=== PATIENT | female | born 1980 | race Caucasian/White ===

== ENCOUNTER 2016-04-16 10:53 | Emergency (ER) | payer OTHER ==
[2016-04-16 10:58] VITALS: PULSE 80; TEMP 98.8; BMI 24.7
--- NOTE | 2016-04-16 11:11 | PDOC ---
History of Present Illness <Radames Patino - Last Filed: 04/16/16 12:48> - General History Source: Patient, Old Records Exam Limitations: No Limitations - History of Present Illness Initial Comments: 04/16/16 11:22 The patient is a 36-year-old woman with a significant past medical history of anemia, ventricular ectopy, symptomatic palpitations, thyroid disease and anxiety who presents to the emergency department via walk-in for further evaluation of a headache since yesterday. No fall/recent head injury. As per patient, she was in her usual state of health when her symptoms started. No strenuous activity. Initially, she experienced a head pressure sensation, frontal, non-radiating and mild, but it has now progressively worsened into a headache with associated photophobia and palpitations. She denies history of migraines. She denies ever experiencing similar symptoms in the past. She states that her palpitations sensations that she experiences with her headache are not different from her typical palpitations. No fever, chills, weakness, chest pain, nausea, vomiting, lightheadedness. Patient was recently in this ED for evaluation of an upper respiratory infection and vertigo for which she was started on Prednisone/Meclizine respectively and admitted. During admission she underwent an echocardiogram that was normal and showed moderate TR. She was ultimately discharged and plan was for repeat outpatient echocardiogram and possible holter monitoring which is scheduled for tomorrow (04/17/2016). Allergies: Fenugreek. Sulfamethoxazole. Trimethoprim Past Surgical History: None reported. Social History: Former smoker. Social ETOH use. No recreational drug use. Primary Care Physician: Dr. Mallory Kennedy / [phone] Eyelet Machine Operator: Dr. Jackie Lagos [phone]/ <Franca Ca - Last Filed: 04/18/16 11:05> - General Chief Complaint: Palpitations Stated Complaint: HEART PALPITATIONS, HEAD PRESSURE Time Seen by Provider: 04/16/16 11:11 Past History - Past Medical History Anemia: Yes Cardiac Disorders: Yes (H/O PALPITATIONS) Psychiatric Problems: Yes (ANXIETY) Suicide Attempt (Hx): No Thyroid Disease: Yes (OVERACTIVE) - Psycho/Social/Smoking Cessation Hx Anxiety: Yes Suicidal Ideation: No Smoking Status: Yes Smoking History: Never smoked Have you smoked in the past 12 months: No Number of Cigarettes Smoked Daily: 0 If you are a former smoker, when did you quit?: 2008 'Breaking Loose' booklet given: 07/09/12 Hx Alcohol Use: Yes (SOCIAL) Drug/Substance Use Hx: No Substance Use Type: None Hx Substance Use Treatment: No <Radames Patino - Last Filed: 04/16/16 12:48> <Franca Ca - Last Filed: 04/18/16 11:05> - Past Medical History Allergies/Adverse Reactions: Allergies Allergy/AdvReac Type Severity Reaction Status Date / Time fenugreek Allergy Verified 03/13/16 10:31 sulfamethoxazole Allergy Verified 03/13/16 10:31 [From Bactrim] trimethoprim [From Bactrim] Allergy Verified 03/13/16 10:31 Home Medications: Ambulatory Orders Diphenhydramine HCl [Benadryl Capsule -] 25 mg PO ASDIR 11/16/15 Review of Systems - Review of Systems Constitutional: No: Chills, Fever HEENTM: No: Recent change in vision, Double Vision Respiratory: No: Cough, Shortness of Breath Cardiac (ROS): Yes: Palpitations. No: Chest Pain ABD/GI: Yes: Nausea. No: Diarrhea, Vomiting Neurological: Yes: Headache. No: Weakness, Ataxia All Other Systems: Reviewed and Negative <Radames Patino - Last Filed: 04/16/16 12:48> *Physical Exam - Vital Signs Last Vital Signs Temp Pulse Resp BP Pulse Ox 98.8 F 80 20 107/74 99 04/16/16 10:55 04/16/16 10:55 04/16/16 10:55 04/16/16 10:55 04/16/16 10:55 <Radames Patino - Last Filed: 04/16/16 12:48> - Vital Signs Last Vital Signs Temp Pulse Resp BP Pulse Ox 98.8 F 80 20 107/74 99 04/16/16 10:55 04/16/16 10:55 04/16/16 10:55 04/16/16 10:55 04/16/16 10:55 - Physical Exam Comments: 04/16/16 11:22 GENERAL: The patient is awake, alert, and fully oriented, in no acute distress. HEAD: Normal with no signs of trauma. EYES: Pupils equal, round and reactive to light, extraocular movements intact, sclera anicteric, conjunctiva clear with no pallor. ENT: Ears normal, nares patent, oropharynx clear without exudates. Moist mucous Membranes. No sinus tenderness or inflammation. NECK: Normal range of motion, supple without lymphadenopathy, JVD, or masses. LUNGS: Breath sounds equal, clear to auscultation bilaterally. No wheeze/ crackles. HEART: Overall regular but with occasional premature beats ABDOMEN: Soft/nontender/nondistended. BS wnl. No guarding or rebound. No palpable masses. No hepatosplenomegaly. EXTREMITIES: Normal range of motion, no edema. No clubbing or cyanosis. No cords, erythema, or tenderness. NEUROLOGICAL: Cranial nerves II through XII grossly intact. Mental status: The patient is alert and oriented x3. Cranial nerves: Cranial nerves II through XII are intact Motor: The upper extremities are 5 over 5 in all muscle groups. The lower extremities are 5 over 5 in all muscle groups. No pronator drift. Sensation: Sensation is intact to light touch throughout. Cerebellar: Dkxfkz-esmzdm-shos is normal in both upper extremities. Heel-knee- colón is normal in both lower extremities. Reflexes: 2+ and symmetric in the upper and lower extremities. Gait: Normal. Heel and toe walking are normal. Tandem gait is normal. PSYCH: Normal mood, normal affect. SKIN: Warm, Dry, normal turgor, no rashes or lesions noted. <Franca Ca - Last Filed: 04/18/16 11:05> Heart Score/ECG Review #1 ECG reviewed & interpreted by me at: 11:01 General ECG Interpretation: Sinus Rhythm (with occasional PVC noted), Normal Rate (74), Normal Intervals (QTC 419), No acute ischemic changes Compared to previous ECG there are: No significant change (03/13/16 (fewer PVCs today)) <Radames Patino - Last Filed: 04/16/16 12:48> ED Treatment Course - LABORATORY CBC & Chemistry Diagram: 04/16/16 11:23 04/16/16 11:23 <Radames Patino Last Filed: 04/16/16 12:48> - LABORATORY CBC & Chemistry Diagram: 04/16/16 11:23 04/16/16 11:23 <Franca Ca - Last Filed: 04/18/16 11:05> Medical Decision Making - Medical Decision Making 04/16/16 11:28 A portion of this note was documented by scribe services under my direction. I have reviewed the details of the note, within reason, and agree with the documentation with the following case summary and management plan written by me. 36-year-old female with known history of ventricular ectopy and symptomatic palpitations, thyroid disease presents with her usual palpitations but more importantly a frontal headache that has been progressive since yesterday. Atraumatic, gradual and mild at onset persistent and progressive in severity, frontal with some photophobia, no vision changes or nausea or vomiting or focal deficit. No fevers or chills, no meningismus. Afebrile. Well-appearing No sinus tenderness Neurologically intact 36-year-old female with gradual onset mild frontal headache, presents for evaluation. Her palpitations are chronic and are not source of her ED complaints. No recent travel, no recent trauma, no evidence of infectious complaints. She did recently start Accutane on Thursday, which has headache in its side effect spectrum. check electrolytes, EKG trial of reglan, IVF check , trial of toradol if negative no indication for emergent imaging at this time, will reassess 04/16/16 12:48 Feels great, headache resolved, ambulating comfortably in the ED. Labs are completely normal, remains neurologically intact, wants to be discharged. Understands return criteria, has appointment with Dr. Trujillo of cardiology tomorrow. <Radames Patino - Last Filed: 04/16/16 12:48> *DC/Admit/Observation/Transfer <Radames Patino - Last Filed: 04/16/16 12:48> - Attestations Scribe Attestion: 04/16/16 11:23 Documentation prepared by Franca Ca, acting as medical collections representative for Radames Patino MD. <Franca Ca - Last Filed: 04/18/16 11:05> Diagnosis at time of Disposition: PVC (premature ventricular contraction) Headache Qualifiers: Headache type: unspecified Headache chronicity pattern: unspecified pattern Intractability: not intractable Qualified Code(s): R51 - Headache - Discharge Dispostion Disposition: HOME Condition at time of disposition: Improved - Referrals Referrals: Mallory Coe MD [Primary Care Provider] - Jackie Lagos MD [Staff Physician] - - Patient Instructions Printed Discharge Instructions: DI for Headache Additional Instructions: Activity as tolerated. Stay hydrated. Tylenol 1000 mg every 8 hours and/or ibuprofen 600 mg every 8 hours as needed for pain. Blood tests today showed no abnormalities. Your headache could be a side effect of Accutane. If it persists, try stopping the Accutane or change in the medication. If it still persists, consider speaking to your primary physician about getting an outpatient MRI. Continue your medications as previously prescribed by your physician. You should follow up with your primary doctor as soon as possible regarding today's emergency department visit. Return to the emergency department for any new or concerning symptoms, particularly persistent or worsening headaches, vision changes or focal weakness , vomiting or fevers, persistent palpitations or chest pain.
[2016-04-16] MEDS ORDERED: SODIUM CHLORIDE 1,000 ML IV ONE (11:24)
[2016-04-16] MEDS ORDERED: METOCLOPRAMIDE HCL INJECTION 10 MG/2 ML VIAL IVPB ONE (11:24)
[2016-04-16 11:45] LABS: EOSINOPHIL 0.4 % (0-4.5); MCH 27.9 pg (25.7-33.7); MCHC 33.5 g/dl (32.0-36.0); MEAN CELL VOLUME 83.3 fl (80-96); MEAN PLT VOLUME 8.8 fl (7.5-11.1); NEUTROPHILS 66.7 % (42.8-82.8); PLATELET COUNT 204 K/MM3 (134-434); WHITE BLOOD COUNT 8.9 K/mm3 (4.0-10.0)
[2016-04-16] MEDS ORDERED: METOCLOPRAMIDE HCL INJECTION 10 MG/2 ML VIAL ONE (11:54)
[2016-04-16 12:10] LABS: ALBUMIN 3.4 g/dl (3.4-5.0); ANION GAP 6 (8-16); BILIRUBIN,TOTAL 0.4 mg/dL (0.2-1.0); CO2 27 mmol/L (21-32); CREATININE 0.8 mg/dL (0.55-1.02); GLUCOSE,RANDOM 72 mg/dL (74-106); MAGNESIUM 2.1 mg/dL (1.8-2.4); SGOT/AST 16 U/L (15-37); SGPT/ALT 14 U/L (12-78); TOT PROT 6.7 g/dl (6.4-8.2)
[2016-04-16 12:13] LABS: ALK PHOS 41 U/L (45-117); TROPONIN I < 0.02 ng/ml (0.00-0.05)
[2016-04-16 13:11] VITALS: BP 120/74
--- NOTE | 2016-04-16 23:48 | EKG ---
Test Reason : Blood Pressure : / mmHG Vent. Rate : 074 BPM Atrial Rate : 074 BPM P-R Int : 146 ms QRS Dur : 092 ms QT Int : 378 ms P-R-T Axes : 081 -02 050 degrees QTc Int : 419 ms SINUS RHYTHM WITH SINUS ARRHYTHMIA WITH OCCASIONAL PREMATURE VENTRICULAR COMPLEXES INCOMPLETE RIGHT BUNDLE BRANCH BLOCK BORDERLINE ECG WHEN COMPARED WITH ECG OF 13-MAR-2016 12:34, NO SIGNIFICANT CHANGE WAS FOUND Confirmed by YONNY JUAREZ, [place] ([id number]) on 04/16/2016 11:47:48 PM Referred By: Confirmed By:WASHINGTON BLANCAS MD
== END 2016-04-16 13:08 | disposition home or self-care (01) ==
LOC: JER 10:53
PROC: 3E033GC Introduction of Other Therapeutic Substance into Peripheral Vein, Percutaneous Approach (ICD-10-PCS; principal; 2016-04-16)
PROC: 3E0337Z Introduction of Electrolytic and Water Balance Substance into Peripheral Vein, Percutaneous Approach (ICD-10-PCS; 2016-04-16)
DX: I49.3 Ventricular premature depolarization (principal); R51 Headache; F41.9 Anxiety disorder, unspecified
CPT/HCPCS: 36415; 80053; 82550; 83735; 84443; 84484; 84703; 85025; 93005; 93010; 96361; 96374; 99284-25

== ENCOUNTER 2018-07-20 10:21 | Emergency (ER) | payer OTHER ==
[2018-07-20 10:28] VITALS: BP 99/71; PULSE 91; TEMP 98.2; BMI 25.4
--- NOTE | 2018-07-20 12:50 | PDOC ---
History of Present Illness - General Chief Complaint: Pain, Acute Stated Complaint: FOOD POISONING Time Seen by Provider: 07/20/18 12:14 History Source: Patient Exam Limitations: No Limitations Past History - Travel Traveled outside of the country in the last 30 days: No Close contact w/someone who was outside of country & ill: No - Past Medical History Allergies/Adverse Reactions: Allergies Allergy/AdvReac Type Severity Reaction Status Date / Time fenugreek Allergy Verified 07/20/18 10:24 sulfamethoxazole Allergy Verified 07/20/18 10:24 [From Bactrim] trimethoprim [From Bactrim] Allergy Verified 07/20/18 10:24 Home Medications: Ambulatory Orders Diphenhydramine HCl [Benadryl Capsule -] 25 mg PO ASDIR 11/16/15 Ondansetron [Zofran Odt -] 4 mg SL TID #10 od.tablet 07/20/18 Anemia: Yes Cardiac Disorders: Yes (H/O PALPITATIONS) COPD: Yes CHF: No Psychiatric Problems: Yes (ANXIETY) Thyroid Disease: Yes (OVERACTIVE) - Immunization History Immunization Up to Date: Yes - Suicide/Smoking/Psychosocial Hx Smoking Status: Yes Smoking History: Never smoked Have you smoked in the past 12 months: No Number of Cigarettes Smoked Daily: 0 If you are a former smoker, when did you quit?: 2008 'Breaking Loose' booklet given: 07/09/12 Hx Alcohol Use: No Drug/Substance Use Hx: No Substance Use Type: None Hx Substance Use Treatment: No Review of Systems - Review of Systems Able to Perform ROS?: Yes Comments:: 07/20/18 14:58 CONSTITUTIONAL: Absent: fever, chills, diaphoresis, generalized weakness, malaise, loss of appetite HEENT: Absent: rhinorrhea, nasal congestion, throat pain, throat swelling, difficulty swallowing, mouth swelling, ear pain, eye pain, visual Changes CARDIOVASCULAR: Absent: chest pain, loss of consciousness, palpitations, irregular heart rate, peripheral edema RESPIRATORY: Absent: cough, shortness of breath, dyspnea with exertion, orthopnea, wheezing, stridor, hemoptysis GASTROINTESTINAL: Present: abdominal pain, nausea, vomiting, diarrhea Absent: abdominal distension constipation, melena, hematochezia GENITOURINARY: Absent: dysuria, frequency, urgency, hesitancy, hematuria, flank pain, genital pain MUSCULOSKELETAL: Absent: myalgia, arthralgia, joint swelling SKIN: Absent: rash, itching, pallor HEMATOLOGIC/IMMUNOLOGIC: Absent: easy bleeding, easy bruising, lymphadenopathy, frequent infections ENDOCRINE: Absent: unexplained weight gain, unexplained weight loss, heat intolerance, cold intolerance NEUROLOGIC: Absent: headache, focal weakness or paresthesias, dizziness, unsteady gait, seizure, mental status changes, bladder or bowel incontinence PSYCHIATRIC: Absent: anxiety, depression, suicidal or homicidal ideation, hallucinations. Is the patient limited Setswana proficient: No *Physical Exam - Vital Signs Last Vital Signs Temp Pulse Resp BP Pulse Ox 98.2 F 91 H 18 99/71 97 07/20/18 10:25 07/20/18 10:25 07/20/18 10:25 07/20/18 10:25 07/20/18 10:25 - Physical Exam Comments: 07/20/18 15:00 GENERAL: Well developed, well nourished. Awake and alert. No acute distress. HEENT: Normocephalic, atraumatic. PERRLA, EOMI. No conjunctival pallor. Sclera are non- icteric. Moist mucous membranes. Oropharynx is clear. NECK: Supple. Full ROM. No JVD. Carotid pulses 2+ and symmetric, without bruits. No thyromegaly. No lymphadenopathy. CARDIOVASCULAR: Regular rate and rhythm. No murmurs, rubs, or gallops. Distal pulses are 2+ and symmetric. PULMONARY: No evidence of respiratory distress. Lungs clear to auscultation bilaterally. No wheezing, rales or rhonchi. ABDOMINAL: Diffuse TTP of the abdomen without focal findings. Soft. Non-distended. No rebound or guarding. No organomegaly. Normoactive bowel sounds. MUSCULOSKELETAL Normal range of motion at all joints. No bony deformities or tenderness. No CVA tenderness. EXTREMITIES: No cyanosis. No clubbing. No edema. No calf tenderness. SKIN: Warm and dry. Normal capillary refill. No rashes. No jaundice. NEUROLOGICAL: Alert, awake, appropriate. Cranial nerves 2-12 intact. No deficits to light touch and temperature in face, upper extremities and lower extremities. No motor deficits in the in face, upper extremities and lower extremities. Normoreflexic in the upper and lower extremities. Normal speech. Toes are down- going bilaterally. Gait is normal without ataxia. PSYCHIATRIC: Cooperative. Good eye contact. Appropriate mood and affect. ED Treatment Course - LABORATORY CBC & Chemistry Diagram: 07/20/18 13:29 07/20/18 13:29 Medical Decision Making - Medical Decision Making 07/20/18 15:01 The patient is a 38-year-old female with no past medical history who presents to the ER today for 1 day of nausea, vomiting, diarrhea and abdominal cramping. Patient states her symptoms started after eating a chicken salad last night. She states that the abdominal pain is crampy in nature and that the pain is relieved after vomiting or having a bowel movement. Denies fevers, chills, earache, sore throat, chest pain, shortness of breath, frequency, urgency and hematuria. A/P: Abdominal pain Patient with diffuse tenderness of the abdomen with no focal findings. Given setting of nausea vomiting and diarrhea for one day after eating out suspected gastroenteritis Basic labs, urine obtained Patient given IV fluids, Zofran and Pepcid with Mylanta for her symptoms. Reevaluate 07/20/18 16:28 On repeat exam, cramping has improved Lab work is grossly normal. No leukocytosis, electrolytes grossly normal urine is negative Most likely viral syndrome Strict return precautions to return should pain localize Pt to f/u with her PCP I discussed the physical exam findings, ancillary test results and final diagnoses with the patient. I answered all of the patient's questions. The patient was satisfied with the care received and felt comfortable with the discharge plan and treatment plan. The Patient agrees to follow up with the primary care physician/specialist within 24-72 hours. Return precautions were given. *DC/Admit/Observation/Transfer Diagnosis at time of Disposition: Abdominal pain Qualifiers: Abdominal location: generalized Qualified Code(s): R10.84 - Generalized abdominal pain - Discharge Dispostion Disposition: HOME Condition at time of disposition: Stable Decision to Admit order: No - Prescriptions Prescriptions: Ondansetron [Zofran Odt -] 4 mg SL TID #10 od.tablet - Referrals Referrals: Mallory Coe MD [Primary Care Provider] - - Patient Instructions Printed Discharge Instructions: DI for Viral Gastroenteritis -- Adult Additional Instructions: You have nausea, vomiting and diarrhea. Avoid all dairy products until 48 hours after the vomiting/diarrhea has resolved. Eat a bland diet including apple sauce, toast, bananas, and plain rice Drink plenty of fluids including pedialyte, watered down juices and water Follow up with your primary care doctor this week Return to the ED if you develop fevers, localized abdominal pain, worsening vomiting, or if you have any changes in your symptoms. - Post Discharge Activity Forms/Work/School Notes: Back to Work
[2018-07-20] MEDS ORDERED: SODIUM CHLORIDE 1,000 ML IV STA (13:08)
[2018-07-20] MEDS ORDERED: ACETAMINOPHEN 1000 MG/100 ML VIAL (NON FORMULARY) IVPB ONE (13:08)
[2018-07-20] MEDS ORDERED: ONDANSETRON 4 MG/2 ML VIAL IVPUSH ONE (13:08)
[2018-07-20] MEDS ORDERED: FAMOTIDINE 20 MG/50 ML IVPB 20 MG/50 ML MG IVPB ONE ×2 (13:08→13:17)
[2018-07-20] MEDS ORDERED: ONDANSETRON 4 MG/2 ML VIAL ONE (13:17)
[2018-07-20] MEDS ORDERED: ACETAMINOPHEN INJECTION 100 ML IVPB ONE (13:17)
[2018-07-20 13:43] LABS: BASO % 0.4 % (0-2.0); EOS % 0.6 % (0-4.5); HEMATOCRIT 40.6 % (32.4-45.2); HEMOGLOBIN 13.7 GM/dL (10.7-15.3); LYMPH % 10.2 % (8-40); MCH 28.6 pg (25.7-33.7); MCHC 33.8 g/dl (32.0-36.0); MEAN CELL VOLUME 84.7 fl (80-96); MEAN PLT VOLUME 9.2 fl (7.5-11.1); MONO % 8.2 % (3.8-10.2); NEUT % 80.6 % (42.8-82.8); PLATELET COUNT 229 K/MM3 (134-434); RBC 4.79 M/mm3 (3.60-5.2); RDW 14.1 % (11.6-15.6); WHITE BLOOD COUNT 9.7 K/mm3 (4.0-10.0)
[2018-07-20 14:17] LABS: ALBUMIN 3.6 g/dl (3.4-5.0); ALK PHOS 45 U/L (45-117); ANION GAP 4 MMOL/L (8-16); BILIRUBIN,TOTAL 1.2 mg/dL (0.2-1); BLOOD UREA NITROGEN 14 mg/dL (7-18); CALCIUM 9.1 mg/dL (8.5-10.1); CHLORIDE 104 mmol/L (98-107); CO2 26 mmol/L (21-32); CREATININE 0.8 mg/dL (0.55-1.3); GLUCOSE,RANDOM 82 mg/dL (74-106); POTASSIUM 4.6 mmol/L (3.5-5.1); SGOT/AST 19 U/L (15-37); SGPT/ALT 17 U/L (13-61); SODIUM 135 mmol/L (136-145); TOT PROT 7.6 g/dl (6.4-8.2)
[2018-07-20] MEDS ORDERED: IBUPROFEN 400 MG TABLET (FP) PO ONE ×2 (14:51→15:03)
[2018-07-20] MEDS ORDERED: MAG HYDROX/AL HYDROX/SIMETH 30 ML UNIT-DOSE CUP PO ONE (14:51)
[2018-07-20 14:53] LABS: HCG,QUALITATIVE URINE Negative
[2018-07-20 14:54] LABS: EPI CELLS 1.3 /HPF (0-5/HPF); PH,URINE 5.5 (5.0-8.0); URINE APPEARANCE CLEAR; URINE BACTERIA 39.5 /hpf (NEGATIVE); URINE BILIRUBIN NEGATIVE (NEGATIVE); URINE CASTS 2 /lpf (0-8); URINE COLOR DK YELLOW; URINE GLUCOSE (UA) NEGATIVE (NEGATIVE); URINE KETONE 2+ (NEGATIVE); URINE LEUK ESTERASE NEGATIVE (NEGATIVE); URINE NITRITE NEGATIVE (NEGATIVE); URINE PROTEIN NEGATIVE (NEGATIVE); URINE RBC 8 /hpf (0-4); URINE UROBILINOGEN 0.2 mg/dL (0.2-1.0); URINE WBC 1 /hpf (0-5)
[2018-07-20] MEDS ORDERED: MAG HYDROX/AL HYDROX/SIMETH 30 ML UNIT-DOSE CUP ONE (15:04)
== END 2018-07-20 17:00 | disposition home or self-care (01) ==
LOC: JER 10:21
PROC: 3E033GC Introduction of Other Therapeutic Substance into Peripheral Vein, Percutaneous Approach (ICD-10-PCS; principal; 2018-07-20)
PROC: 3E033GC Introduction of Other Therapeutic Substance into Peripheral Vein, Percutaneous Approach (ICD-10-PCS; 2018-07-20)
PROC: 3E033NZ Introduction of Analgesics, Hypnotics, Sedatives into Peripheral Vein, Percutaneous Approach (ICD-10-PCS; 2018-07-20)
DX: A08.4 Viral intestinal infection, unspecified (principal); B97.89 Other viral agents as the cause of diseases classified elsewhere; J44.9 Chronic obstructive pulmonary disease, unspecified; E05.90 Thyrotoxicosis, unspecified without thyrotoxic crisis or storm; Z86.2 Personal history of diseases of the blood and blood-forming organs and certain disorders involving the immune mechanism
CPT/HCPCS: 36415; 80053; 81003; 82550; 84484; 84703; 85025; 87086; 96365; 96375; 99282-25; J0131; J7030

== ENCOUNTER 2018-10-21 13:31 | Emergency (ER) | payer OTHER ==
[2018-10-21 13:45] VITALS: BMI 29.1
--- NOTE | 2018-10-21 13:47 | PDOC ---
Rapid Medical Evaluation Chief Complaint: Chest Pain Time Seen by Provider: 10/21/18 13:41 Medical Evaluation: Allergies Allergy/AdvReac Type Severity Reaction Status Date / Time fenugreek Allergy Verified 07/20/18 10:24 sulfamethoxazole Allergy Verified 07/20/18 10:24 [From Bactrim] trimethoprim [From Bactrim] Allergy Verified 07/20/18 10:24 10/21/18 13:42 I have performed a brief in-person evaluation of this patient. The patient presents with a chief complaint of: dizziness/ lightheaded- "legs gave out" NON COMPACTION SYNDROME of Heart- Pertinent physical exam findings: pale,. A&Ox 3 I have ordered the following: EKG The patient will proceed to the ED for further evaluation. Discharge Disposition - Diagnosis Chest pain - Referrals - Patient Instructions - Post Discharge Activity
--- NOTE | 2018-10-21 13:56 | PDOC ---
*Physical Exam - Vital Signs Last Vital Signs Temp Pulse Resp BP Pulse Ox 98.5 F 71 18 109/73 100 10/21/18 13:42 10/21/18 13:42 10/21/18 13:42 10/21/18 13:42 10/21/18 13:42 ED Treatment Course - LABORATORY CBC & Chemistry Diagram: 10/21/18 14:25 10/21/18 14:25 Medical Decision Making - Medical Decision Making 10/21/18 13:55 Pt seen by Midlevel Provider under my direct supervision Ancillary studies reviewed I agree with plan as outlined by Midlevel Provider 10/21/18 13:56 Twelve-lead EKG was performed and reviewed by me. There is normal sinus rhythm with a normal rate. The axis is normal. The intervals are normal. There are no ST or T wave abnormalities. Impression: Normal twelve-lead EKG *DC/Admit/Observation/Transfer Diagnosis at time of Disposition: Chest pain - Discharge Dispostion Disposition: HOME Condition at time of disposition: Improved - Referrals - Patient Instructions Printed Discharge Instructions: DI for Atypical Chest Pain Additional Instructions: At this time your blood work chest x-ray and EKG were normal. The urine did show slight dehydration and I recommend drinking plenty of fluids to avoid symptoms of dehydration which includes dizziness headache slight weakness and dark urine Follow-up with special investigation unit investigator as discussed - Post Discharge Activity
--- NOTE | 2018-10-21 14:33 | PDOC ---
History of Present Illness - General Chief Complaint: Chest Pain Stated Complaint: CHEST PAIN Time Seen by Provider: 10/21/18 13:41 History Source: Patient Exam Limitations: No Limitations - History of Present Illness Initial Comments: 10/21/18 14:03 38-year-old female presents to ED with evaluation of intermittent left-sided chest tightness for the past few days and is concerned since she has not been taking her atenolol as recommended if she develops chest pain or palpitations. Patient states history of cardiomyopathy and today while getting out of the car she felt dizzy and felt as if her legs were going to buckle but caught herself. Patient states has had intermittent dizziness for the past month and is concerned since she has history of anemia along with a 2 week long menstrual cycle but she finished one week ago Timing/Duration: intermittent Severity: mild Associated Symptoms: reports: chest pain, weakness Past History - Travel Traveled outside of the country in the last 30 days: No Close contact w/someone who was outside of country & ill: No - Past Medical History Allergies/Adverse Reactions: Allergies Allergy/AdvReac Type Severity Reaction Status Date / Time fenugreek Allergy Verified 10/21/18 13:45 sulfamethoxazole Allergy Verified 10/21/18 13:45 [From Bactrim] trimethoprim [From Bactrim] Allergy Verified 10/21/18 13:45 Home Medications: Ambulatory Orders Diphenhydramine HCl [Benadryl Capsule -] 25 mg PO ASDIR 11/16/15 Ondansetron [Zofran Odt -] 4 mg SL TID #10 od.tablet 07/20/18 Anemia: Yes Cardiac Disorders: Yes (H/O PALPITATIONS, NON-COMPACTION CARDIOMHYOPATHY) COPD: Yes CHF: No Psychiatric Problems: Yes (ANXIETY) Thyroid Disease: Yes (OVERACTIVE) - Immunization History Immunization Up to Date: Yes - Suicide/Smoking/Psychosocial Hx Smoking Status: Yes Smoking History: Never smoked Have you smoked in the past 12 months: No Number of Cigarettes Smoked Daily: 0 If you are a former smoker, when did you quit?: 2008 Information on smoking cessation initiated: No 'Breaking Loose' booklet given: 07/09/12 Hx Alcohol Use: No Drug/Substance Use Hx: No Substance Use Type: None Hx Substance Use Treatment: No Patient Lives Alone: No Review of Systems - Review of Systems Able to Perform ROS?: Yes Constitutional: Yes: Weakness HEENTM: No: Symptoms Reported Respiratory: No: Symptoms reported Cardiac (ROS): Yes: Chest Pain : No: Symptoms Reported Musculoskeletal: Yes: Muscle Weakness (legs) Integumentary: No: Symptoms Reported Neurological: No: Headache, Dizziness Psychiatric: Yes: Anxiety Endocrine: No: Symptoms Reported Hematologic/Lymphatic: Yes: Anemia *Physical Exam - Vital Signs Last Vital Signs Temp Pulse Resp BP Pulse Ox 98.5 F 71 18 109/73 100 10/21/18 13:42 10/21/18 13:42 10/21/18 13:42 10/21/18 13:42 10/21/18 13:42 - Physical Exam General Appearance: Yes: Nourished, Appropriately Dressed. No: Apparent Distress HEENT: negative: Pale Conjunctivae Neck: positive: Normal Thyroid, Supple Respiratory/Chest: positive: Lungs Clear, Normal Breath Sounds. negative: Respiratory Distress, Accessory Muscle Use Cardiovascular: positive: Regular Rhythm, Regular Rate. negative: Murmur Gastrointestinal/Abdominal: positive: Soft. negative: Tenderness Extremity: positive: Normal Inspection Integumentary: positive: Normal Color, Warm, Moist Neurologic: positive: Normal Mood/Affect (anxious), Motor Strength 5/5 ( ambulatory) ED Treatment Course - LABORATORY CBC & Chemistry Diagram: 10/21/18 14:25 10/21/18 14:25 - RADIOLOGY Radiology Studies Ordered: Category Date Time Status CHEST X-RAY PORTABLE* [RAD] Stat Radiology 10/21/18 13:59 Ordered Medical Decision Making - Medical Decision Making 10/21/18 14:07 CC: Chest pain with intermittent weakness for the past week and today while getting of the car she states her knees buckled secondary to leg weakness patient states history of anemia and cardiomyopathy. no other complaints. Exam: No reproducible chest pain vital signs stable patient anxious appearing Plan: Cardiac workup and ferritin level 10/21/18 15:38 Laboratory Tests 10/21/18 10/21/18 10/21/18 14:25 14:25 14:25 WBC 7.8 Hgb 12.3 Hct 36.9 Absolute Neuts (auto) 4.6 Sodium 137 Potassium 4.2 Chloride 103 Carbon Dioxide 28 Anion Gap 6 L BUN 16.1 Creatinine 0.8 Magnesium Ferritin Total Bilirubin 0.5 AST 17 ALT 21 Troponin I < 0.02 Urine Ketones Urine Bilirubin Ur Leukocyte Esterase Urine HCG, Qual Negative 10/21/18 10/21/18 10/21/18 14:25 14:25 14:25 WBC Hgb Hct Absolute Neuts (auto) Sodium Potassium Chloride Carbon Dioxide Anion Gap BUN Creatinine Magnesium 2.3 Ferritin 24.1 Total Bilirubin AST ALT Troponin I Urine Ketones 1+ H Urine Bilirubin Negative Ur Leukocyte Esterase Negative Urine HCG, Qual Pt remains asymptomatic and will be given copy of labs. Pt recommended to f/u w / fuse assembler, Dr. Nichole. *DC/Admit/Observation/Transfer Diagnosis at time of Disposition: Chest pain - Discharge Dispostion Disposition: HOME Condition at time of disposition: Improved - Referrals - Patient Instructions Printed Discharge Instructions: DI for Atypical Chest Pain Additional Instructions: At this time your blood work chest x-ray and EKG were normal. The urine did show slight dehydration and I recommend drinking plenty of fluids to avoid symptoms of dehydration which includes dizziness headache slight weakness and dark urine Follow-up with fuse assembler as discussed - Post Discharge Activity
[2018-10-21 14:39] LABS: HEMATOCRIT 36.9 % (32.4-45.2); HEMOGLOBIN 12.3 GM/dL (10.7-15.3); LYMPH % 31.3 % (8-40); MCH 27.9 pg (25.7-33.7); MCHC 33.3 g/dl (32.0-36.0); MEAN CELL VOLUME 83.9 fl (80-96); MEAN PLT VOLUME 8.9 fl (7.5-11.1); MONO % 7.2 % (3.8-10.2); NEUT % 59.5 % (42.8-82.8); RBC 4.41 M/mm3 (3.60-5.2); RDW 14.7 % (11.6-15.6); WHITE BLOOD COUNT 7.8 K/mm3 (4.0-10.0)
[2018-10-21 14:43] LABS: URINE APPEARANCE CLEAR; URINE BILIRUBIN NEGATIVE (NEGATIVE); URINE COLOR YELLOW; URINE GLUCOSE (UA) NEGATIVE (NEGATIVE); URINE KETONE 1+ (NEGATIVE); URINE LEUK ESTERASE NEGATIVE (NEGATIVE); URINE NITRITE NEGATIVE (NEGATIVE); URINE PROTEIN NEGATIVE (NEGATIVE); URINE UROBILINOGEN 0.2 mg/dL (0.2-1.0)
[2018-10-21 14:48] LABS: PLATELET COUNT 238 K/MM3 (134-434)
[2018-10-21 15:17] LABS: ALBUMIN 4.1 g/dl (3.4-5.0); ALK PHOS 49 U/L (45-117); ANION GAP 6 MMOL/L (8-16); BILIRUBIN,TOTAL 0.5 mg/dL (0.2-1); BLOOD UREA NITROGEN 16.1 mg/dL (7-18); CALCIUM 8.8 mg/dL (8.5-10.1); CHLORIDE 103 mmol/L (98-107); CO2 28 mmol/L (21-32); CREATININE 0.8 mg/dL (0.55-1.3); GLUCOSE,RANDOM 94 mg/dL (74-106); POTASSIUM 4.2 mmol/L (3.5-5.1); SGOT/AST 17 U/L (15-37); SGPT/ALT 21 U/L (13-61); SODIUM 137 mmol/L (136-145); TOT PROT 7.4 g/dl (6.4-8.2)
--- NOTE | 2018-10-21 15:17 | EKG ---
Test Reason : Blood Pressure : / mmHG Vent. Rate : 056 BPM Atrial Rate : 056 BPM P-R Int : 144 ms QRS Dur : 084 ms QT Int : 432 ms P-R-T Axes : 062 032 034 degrees QTc Int : 416 ms SINUS BRADYCARDIA OTHERWISE NORMAL ECG WHEN COMPARED WITH ECG OF 16-APR-2016 11:01, PREMATURE VENTRICULAR COMPLEXES ARE NO LONGER PRESENT Confirmed by WASHINGTON BLANCAS MD ([id number]) on 10/21/2018 3:16:55 PM Referred By: Confirmed By:WASHINGTON BLANCAS MD
[2018-10-21 15:59] VITALS: BP 102/72; PULSE 72; TEMP 98.1
== END 2018-10-21 15:50 | disposition home or self-care (01) ==
LOC: JER 13:31
DX: R07.9 Chest pain, unspecified (principal); D64.9 Anemia, unspecified; F41.9 Anxiety disorder, unspecified; Z86.79 Personal history of other diseases of the circulatory system
CPT/HCPCS: 36415; 71045-TC-FY; 80053; 81003; 82550; 82728; 83735; 84484; 84703; 85025; 93005; 93010; 99284-25

== ENCOUNTER 2018-12-20 09:41 | Emergency (ER) | payer OTHER | END 2018-12-20 11:15 | disposition home or self-care (01) | LOC: JERFT 09:41 ==

== ENCOUNTER 2020-03-28 20:17 | Emergency (ER) | payer OTHER ==
[2020-03-28 20:30] VITALS: BMI 24.6
[2020-03-28 22:00] LABS: BASO % 0.7 % (0-2.0); EOS % 0.4 % (0-4.5); HEMATOCRIT 32.7 % (32.4-45.2); HEMOGLOBIN 10.9 GM/dL (10.7-15.3); LYMPH % 30.1 % (8-40); MCHC 33.3 g/dl (32.0-36.0); MEAN PLT VOLUME 9.4 fl (7.5-11.1); MONO % 20.5 % (3.8-10.2); NEUT % 48.3 % (42.8-82.8); PLATELET COUNT 192 K/MM3 (134-434); RBC 4.03 M/mm3 (3.60-5.2); RDW 16.1 % (11.6-15.6); WHITE BLOOD COUNT 5.4 K/mm3 (4.0-10.0)
[2020-03-28] MEDS ORDERED: BAMLANIVIMAB 700 MG in SODIUM CHLORIDE 180 ML IVPB ONE (22:04)
[2020-03-28 22:18] LABS: POTASSIUM 4.3 mmol/L (3.5-5.1)
[2020-03-28 22:20] LABS: CALCIUM 8.5 mg/dL (8.5-10.1)
[2020-03-28 22:21] LABS: ALBUMIN 3.4 g/dl (3.4-5.0); BLOOD UREA NITROGEN 20.2 mg/dL (7-18)
[2020-03-28 22:24] LABS: CREATININE 0.9 mg/dL (0.55-1.3)
[2020-03-28 22:25] LABS: BILIRUBIN,TOTAL 0.2 mg/dL (0.2-1); TOT PROT 6.6 g/dl (6.4-8.2)
[2020-03-28 23:45] LABS: ANISOCYTOSIS 0; MACROCYTOSIS 0; PLATELET ESTIMATE NORMAL
[2020-03-29 03:03] VITALS: BP 100/64; PULSE 85; TEMP 98.9
== END 2020-03-29 03:11 | disposition home or self-care (01) ==
LOC: JER 20:17
DX: U07.1 COVID-19 (principal)
CPT/HCPCS: 36415; 80053; 84703; 85025; 99283-25; C9803; M0239; Q0239; U0003

== ENCOUNTER 2020-12-21 21:42 | Emergency (ER) | payer OTHER ==
[2020-12-21 21:52] VITALS: BP 100/64; PULSE 78; TEMP 97; BMI 25.4
== END 2020-12-22 00:24 | disposition left against medical advice (07) ==
LOC: JER 21:42
DX: R07.9 Chest pain, unspecified (principal)
CPT/HCPCS: 99281-25

== ENCOUNTER 2021-01-09 13:04 | Emergency (ER) | payer OTHER ==
[2021-01-09 13:18] VITALS: BP 112/67; PULSE 72; TEMP 98.2; BMI 25.7
== END 2021-01-09 14:22 | disposition left against medical advice (07) ==
LOC: JER 13:04
DX: R07.9 Chest pain, unspecified (principal)
CPT/HCPCS: 93005; 93010; 99281-25

== ENCOUNTER 2021-09-28 00:25 | Emergency (ER) | payer OTHER ==
[2021-09-28 00:34] VITALS: BP 124/82; PULSE 82; TEMP 97.1; BMI 25.7
[2021-09-28] MEDS ORDERED: MAG HYDROX/AL HYDROX/SIMETH 30 ML UNIT-DOSE CUP PO ONE (00:41)
[2021-09-28] MEDS ORDERED: ONDANSETRON 4 MG/2 ML VIAL IVPUSH ONE (00:41)
[2021-09-28] MEDS ORDERED: FAMOTIDINE 20 MG/50 ML IVPB 20 MG/50 ML MG IVPB ONE ×2 (00:41→00:46)
[2021-09-28] MEDS ORDERED: MAG HYDROX/AL HYDROX/SIMETH 30 ML UNIT-DOSE CUP ONE (00:46)
[2021-09-28] MEDS ORDERED: ONDANSETRON 4 MG/2 ML VIAL ONE (00:46)
[2021-09-28 01:15] LABS: BASO % 0.8 % (0-2.0); HEMATOCRIT 29.8 % (32.4-45.2); HEMOGLOBIN 9.8 GM/dL (10.7-15.3); LYMPH % 30.7 % (8-40); MEAN CELL VOLUME 72.7 fl (80-96); MEAN PLT VOLUME 8.7 fl (7.5-11.1); MONO % 10.2 % (3.8-10.2); NEUT % 57.3 % (42.8-82.8); PLATELET COUNT 211 10^3/uL (134-434); RDW 16.4 % (11.6-15.6); WHITE BLOOD COUNT 7.3 K/mm3 (4.0-10.0)
[2021-09-28 01:48] LABS: CALCIUM 8.8 mg/dL (8.5-10.1)
[2021-09-28 01:49] LABS: ALBUMIN 3.4 g/dl (3.4-5.0); BLOOD UREA NITROGEN 18.2 mg/dL (7-18)
[2021-09-28 01:52] LABS: CREATININE 0.8 mg/dL (0.55-1.3)
[2021-09-28 01:53] LABS: BILIRUBIN,TOTAL 0.2 mg/dL (0.2-1); PHOSPHOROUS 3.1 mg/dL (2.5-4.9); TOT PROT 6.6 g/dl (6.4-8.2)
[2021-09-28] MEDS ORDERED: LACTATED RINGERS SOLUTION 1000 ML INFUS.BAG IV ONE (03:28)
== END 2021-09-28 04:22 | disposition home or self-care (01) ==
LOC: JER 00:25
PROC: 3E033GC Introduction of Other Therapeutic Substance into Peripheral Vein, Percutaneous Approach (ICD-10-PCS; principal; 2021-09-28)
PROC: 3E033GC Introduction of Other Therapeutic Substance into Peripheral Vein, Percutaneous Approach (ICD-10-PCS; 2021-09-28)
DX: R00.2 Palpitations (principal)
CPT/HCPCS: 36415; 71046-TC-FY; 80053; 83735; 84100; 84439; 84443; 84484; 84703; 85025; 93005; 93010; 96374; 96375; 99285-25; C9803-CS; U0003; U0005

== ENCOUNTER 2022-04-22 05:11 | Day surgery (SDC) | payer OTHER ==
[2022-04-16 12:52] VITALS: BMI 27.1
[2022-04-22] MEDS ORDERED: PROPOFOL 20 ML ONE (09:55)
[2022-04-22] MEDS ORDERED: ONDANSETRON 4 MG/2 ML VIAL ONE (09:55)
[2022-04-22] MEDS ORDERED: DEXAMETHASONE SOD PHOSPHATE 4 MG/1 ML VIAL ONE (09:55)
[2022-04-22] MEDS ORDERED: LIDOCAINE HCL/PF 2% SDV 5ML VIAL ONE (09:56)
[2022-04-22] MEDS ORDERED: ONDANSETRON 4 MG/2 ML VIAL IVPUSH PRN (10:41)
[2022-04-22] MEDS ORDERED: oxyCODONE HCL 5 MG TABLET PO PRN ×2 (10:41)
[2022-04-22] MEDS ORDERED: ACETAMINOPHEN 1000 MG/100 ML BAG IVPB ONE (10:41)
[2022-04-22] MEDS ORDERED: LACTATED RINGERS SOLUTION 1,000 ML IV SCH (10:45)
[2022-04-22] MEDS ORDERED: ACETAMINOPHEN INJECTION 100 ML IVPB ONE (11:00)
[2022-04-22 12:11] VITALS: RESP 20; TEMP 97.8
[2022-04-22 12:14] VITALS: BP 111/65; PULSE 62
== END 2022-04-22 12:23 | disposition home or self-care (01) ==
LOC: JASU-SURG 05:11
PROVIDERS: ATTEND Obstetrics & Gynecology
PROC: 0UB98ZZ Excision of Uterus, Via Natural or Artificial Opening Endoscopic (ICD-10-PCS; principal; 2022-04-22 10:00)
DX: N93.9 Abnormal uterine and vaginal bleeding, unspecified (principal); N84.0 Polyp of corpus uteri
CPT/HCPCS: 81025; 88305-TC; 94760

== ENCOUNTER 2022-10-27 10:07 | Emergency (ER) | payer OTHER ==
[2022-10-27 10:43] VITALS: BP 103/72; PULSE 54; RESP 18; TEMP 98.9; BMI 27.4
[2022-10-27] MEDS ORDERED: ACETAMINOPHEN 325 MG TABLET (FP) PO ONE (10:58)
[2022-10-27 11:36] LABS: BASO % 0.9 % (0-2.0); EOS % 0.8 % (0-4.5); HEMATOCRIT 36.1 % (32.4-45.2); HEMOGLOBIN 11.4 GM/dL (10.7-15.3); LYMPH % 33.2 % (8-40); MCH 25.1 pg (25.7-33.7); MCHC 31.7 g/dl (32.0-36.0); MEAN CELL VOLUME 79.1 fl (80-96); MEAN PLT VOLUME 9.4 fl (7.5-11.1); MONO % 8.6 % (3.8-10.2); NEUT % 56.5 % (42.8-82.8); PLATELET COUNT 206 10^3/uL (134-434); RBC 4.55 M/mm3 (3.60-5.2); RDW 17.7 % (11.6-15.6); WHITE BLOOD COUNT 5.5 K/mm3 (4.0-10.0)
[2022-10-27] MEDS ORDERED: ACETAMINOPHEN 325 MG TABLET (FP) ONE (11:47)
[2022-10-27 11:57] LABS: POTASSIUM 4.7 mmol/L (3.5-5.1)
[2022-10-27 11:59] LABS: CALCIUM 8.7 mg/dL (8.5-10.1)
[2022-10-27 12:00] LABS: ALBUMIN 3.5 g/dl (3.4-5.0); BLOOD UREA NITROGEN 10.9 mg/dL (7-18); MAGNESIUM 2.4 mg/dL (1.8-2.4)
[2022-10-27 12:03] LABS: CREATININE 0.8 mg/dL (0.55-1.3)
[2022-10-27 12:04] LABS: BILIRUBIN,TOTAL 0.6 mg/dL (0.2-1); TOT PROT 6.6 g/dl (6.4-8.2)
== END 2022-10-27 12:00 | disposition home or self-care (01) ==
LOC: JER 10:07
DX: R07.9 Chest pain, unspecified (principal)
CPT/HCPCS: 36415; 80053; 83735; 84443; 84484; 85025; 93005; 93010; 99284-25

== ENCOUNTER 2023-11-23 04:35 | Day surgery (SDC) | payer OTHER ==
[2023-11-18 14:37] VITALS: BMI 27.1
[2023-11-23] MEDS ORDERED: oxyCODONE HCL 5 MG TABLET PO PRN (07:35)
[2023-11-23] MEDS ORDERED: PROPOFOL 20 ML ONE (09:01)
[2023-11-23] MEDS ORDERED: MIDAZOLAM HCL 2 MG/2 ML SINGLE DOSE VIAL ONE (09:01)
[2023-11-23] MEDS ORDERED: ONDANSETRON 4 MG/2 ML VIAL ONE ×2 (09:44→12:36)
[2023-11-23] MEDS ORDERED: DEXAMETHASONE SOD PHOSPHATE 4 MG/1 ML VIAL ONE (09:44)
[2023-11-23] MEDS ORDERED: ACETAMINOPHEN 325 MG TABLET (FP) PO PRN (09:44)
[2023-11-23] MEDS ORDERED: IBUPROFEN 400 MG TABLET (FP) PO PRN (09:44)
[2023-11-23] MEDS ORDERED: KETOROLAC TROMETHAMINE 30 MG/1 ML VIAL ONE (09:44)
[2023-11-23] MEDS: LACTATED RINGERS SOLUTION 1,000 ML IV SCH (10:30)
[2023-11-23 11:54] VITALS: RESP 16
[2023-11-23] MEDS: ONDANSETRON 4 MG/2 ML VIAL IVPUSH PRN (12:39)
[2023-11-23 12:51] VITALS: TEMP 97.8
[2023-11-23 14:28] VITALS: BP 100/65; PULSE 61
== END 2023-11-23 14:32 | disposition home or self-care (01) ==
LOC: JASU-SURG 04:35
PROVIDERS: ATTEND Obstetrics & Gynecology
PROC: 0UB98ZZ Excision of Uterus, Via Natural or Artificial Opening Endoscopic (ICD-10-PCS; principal; 2023-11-23 08:30)
DX: N92.0 Excessive and frequent menstruation with regular cycle (principal); D25.0 Submucous leiomyoma of uterus; N80.03 Adenomyosis of the uterus
CPT/HCPCS: 81025; 86850; 86900; 86901; 88305-TC; 94760